=== PATIENT | female | born 1960 | race Caucasian/White ===

== ENCOUNTER 2022-08-25 14:29 | Emergency (ER) | payer MEDICARE, MEDICAID ==
[~2022-08-25] VITALS: Ht 167.6 cm; Wt 97.0 kg
[2022-08-25] MEDS ORDERED: HYDROCODONE/ACETAMINOPHEN 5/325MG TABLET PO ONE (15:45)
[2022-08-25 16:19] VITALS: BP 140/65
[2022-08-25] MEDS ORDERED: IBUP-2029 MT (16:39)
== END 2022-08-25 16:54 | disposition home or self-care (01) ==
LOC: ER 14:29
DX: S80.211A Abrasion, right knee, initial encounter (principal); I10 Essential (primary) hypertension; E78.00 Pure hypercholesterolemia, unspecified; M25.532 Pain in left wrist; W18.30XA Fall on same level, unspecified, initial encounter; Y93.89 Activity, other specified; Y92.89 Other specified places as the place of occurrence of the external cause; Y99.8 Other external cause status
CPT/HCPCS: 72170; 73110; 73562; 99284